=== PATIENT | male | born 1990 | race African-American/Black ===

== ENCOUNTER 2017-01-27 21:04 | Emergency (ER) | payer OTHER ==
--- NOTE | ~2017-01-27 | ER ---
PATIENT'S NAME: ARTUR ARMANDO [facility] AGE: 26 Y [address] ROOM: [place] [address] LOCATION: [facility] ADMIT DATE: 01/27/2017 ER/Outpatient Report DISCHARGE DATE: 01/27/2017 FAMILY PHYSICIAN: PHYSICIAN, NO ATTENDING PHYSICIAN: Bradford Blanchard Time of Arrival: 2107 hours. Time of Evaluation: 2110 hours. CHIEF COMPLAINT: Left shoulder, neck pain. HISTORY OF PRESENT ILLNESS: The patient states was working out yesterday, doing a rowing type motion, was little sore last night, but today about 1 o'clock, he began having quite a bit of cramping in the left anterior shoulder, into the left neck area. Denies having any chest pain or shortness of breath. Denies having any fever or chills. Denies having a headache. He states he has had problems with the right shoulder before but never on the left. Denies any vision changes. ALLERGIES: NO KNOWN ALLERGIES. MEDICATIONS: No regular medications. PAST MEDICAL HISTORY: Benign. PAST SURGICAL HISTORY: Surgery to the right shoulder. REVIEW OF SYSTEMS: All negative other than those mentioned in the HPI. PHYSICAL EXAMINATION: VITAL SIGNS: He weighs 105.1 kg, blood pressure is 162/75, pulse of 90, respirations 16, temperature of 98.4, O2 saturation is 98% on room air. GENERAL: He is awake, alert, and oriented x4. SKIN: [place], warm, and dry. RESPIRATIONS: Even and nonlabored. Lung sounds are clear throughout. HEART: Regular rate and rhythm. MUSCULOSKELETAL: Left shoulder range of motion is not decreased, not able to pinpoint where the pain is. With neck range of motion, he did have increased discomfort along the paraspinal area associated with flexion and extension. PATIENT'S NAME: ARTUR ARMANDO [facility] AGE: 26 Y [address] ROOM: [place] [address] LOCATION: [facility] ADMIT DATE: 01/27/2017 ER/Outpatient Report DISCHARGE DATE: 01/27/2017 FAMILY PHYSICIAN: PHYSICIAN, NO ATTENDING PHYSICIAN: Bradford Blanchard He has strong radial and ulnar pulses. IMPRESSION: Left shoulder pain, left neck pain due to overuse. PLAN: Home, rest. Heat or ice to the area. Prescription was written for Flexeril for spasms and naproxen for discomfort. He is to follow up with an orthopedic doctor in 2 to 3 days if symptoms persist or worsen. He verbalized understanding. CHRISTINE MONZON APRN FOR MD OBED ORTEZ/tejinder /[id number] d: 01/28/17 0038 t: 01/30/17 1811, OUTPATIENT REPORT
== END 2017-01-27 21:32 | disposition disaster alternative care site (69) ==
LOC: GMED 21:04
DX: M25.512 Pain in left shoulder (principal); M54.2 Cervicalgia

== ENCOUNTER 2017-05-26 16:48 | Emergency (ER) | payer OTHER ==
--- NOTE | ~2017-05-26 | ER ---
PATIENT'S NAME: ARTUR ARMANDO [facility] AGE: 27 Y [address] ROOM: [place] [address] LOCATION: ED ADMIT DATE: 05/26/2017 ER/Outpatient Report DISCHARGE DATE: 05/26/2017 FAMILY PHYSICIAN: Flex Dunn MD ATTENDING PHYSICIAN: Honey Puri Time of Arrival: 1648 hours. Time of Evaluation: 1706 hours. IDENTIFICATION: A 27-year-old male. CHIEF COMPLAINT: High blood pressure. HISTORY OF PRESENT ILLNESS: The patient states yesterday his blood pressure was 170s systolic, today was running high again, was seen at [facility] and his left hand had kind of been purple around 1 o'clock today. His blood pressure was high, so he went to the clinic. Blood pressure at the clinic was 177/80, so he was sent to the ER for CAT scan. When I talked with Dr. Rubio, he actually said that the patient had concerns where he did want a head CT. The patient denies any headache. He really denies any other symptoms and the discoloration of his arm has completely resolved. He just feels a weird sensation on the left side of his chest. ALLERGIES: NO KNOWN DRUG ALLERGIES. CURRENT MEDICATIONS: No current medications. PAST MEDICAL HISTORY: The patient denies any medical problems. Dr. Rubio states he has a history of alpha-thalassemia. FAMILY HISTORY: Positive for hypertension. SOCIAL HISTORY: The patient lives here in [place]. Works at [employer]. Tobacco use, denies. Alcohol use, occasional. Drug use, denies. REVIEW OF SYSTEMS: All systems reviewed and negative other than what is noted in the HPI. PATIENT'S NAME: ARTUR ARMANDO [facility] AGE: 27 Y [address] ROOM: [place] [address] LOCATION: [facility] ADMIT DATE: 05/26/2017 ER/Outpatient Report DISCHARGE DATE: 05/26/2017 FAMILY PHYSICIAN: Flex Dunn MD ATTENDING PHYSICIAN: Honey Puri PHYSICAL EXAMINATION: VITAL SIGNS: Height 6 feet 0 inches, weight 107 kg, blood pressure 158/106, pulse 80, respirations 17, temperature 98.4, sats 99% on room air. GENERAL: Pleasant male in no acute distress. HEENT: Head: Normocephalic, atraumatic. Ears: TMs translucent, both ears. Eyes: Pupils equal and reactive to light and accommodation. Extraocular movements intact. Nose: Mucosa pink. No lesions. Mouth: No lesions. Pharynx benign. NECK: Supple. No lymphadenopathy. LUNGS: Clear to auscultation. HEART: Regular rate and rhythm. ABDOMEN: Soft, nondistended, nontender. SKIN: [place], warm, and dry. No lesions or rashes noted. NEURO: The patient is alert and oriented x4. Cranial nerves 2 through 12 grossly intact. Motor strength 5/5 throughout. Sensation is intact to light touch. Blood pressure rechecked in the right arm 164/86, left arm 170/92. EMERGENCY DEPARTMENT COURSE: Labs were ordered. Urine, TSH, ACS with one-view, chest x-ray, and a head CT. It is shift change and Dr. Villalobos will assume care. HONEY PURI MD CAR/modl /[id number] d: 05/29/172139 t: 05/30/17 0610, OUTPATIENT REPORT
--- NOTE | ~2017-05-26 | ER ---
PATIENT'S NAME: ARTUR ARMANDO [facility] AGE: 27 Y [address] ROOM: [place] [address] LOCATION: [facility] ADMIT DATE: 05/26/2017 ER/Outpatient Report DISCHARGE DATE: 05/26/2017 FAMILY PHYSICIAN: Flex Dunn MD ATTENDING PHYSICIAN: Honey Kearney HISTORY OF PRESENT ILLNESS: This patient is a 27-year-old male who comes in with hypertension. He was initially seen by Dr. Rubio at [facility] and asked to come over here for further evaluation, cardiac workup, and brain scan. The patient initially saw Dr. Kearney. See Dr. Kearney's dictation in regard to the chief complaint, history of present illness, past medical history, and physical exam. Dr. Kearney transferred the patient's care over to me at shift change. She asked me to follow up with the patient's laboratory study results, EKG and chest x-ray results, and CT scan of the brain results. CT scan of the head showed no intracranial bleed, midline shift, mass effect, or skull fracture. CT scan was read by Radiology, see dictated transcribed report. Chest x-ray showed no acute infiltrate or changes. We will review x-ray with the radiologist. EKG showed early repolarization, sinus rhythm. No acute ST elevation, ischemic change, or arrhythmia. LABORATORY STUDIES: CMS was normal. Magnesium was normal at 2.0. CPK was normal at 213. Point of care cardiac enzymes were normal. TSH was normal at 1.58. White count 6300, 72 segs, 19 lymphs, 8 monos, 1 eo, and 1 baso. Hemoglobin is 12.3, hematocrit 38.9, and platelet count is [id number]. PTT was 26, pro-time was 10 with an INR 0.95. Urinalysis was clear. IMPRESSION: Hypertension. PLAN: I did discuss this patient with Dr. Rubio on the phone. Dr. Rubio wanted the patient to be started on Norvasc. He called in a script to [facility]. Norvasc 5 mg one a day. He is to start that tonight. To see Dr. Sanz tomorrow in the clinic at 1030 hours in the morning. The patient is to continue balanced diet, good fluid intake, good rest, and good exercise program. He was instructed to talk to Dr. Sanz about dietary management and whether he should see a dietitian in regard to his diet. Discussion ensued with the patient concerning my findings and recommendations, he understands. WILLIAN HAMMONDS MD PATIENT'S NAME: ARTUR ARMANDO+ [facility] AGE: 27 Y [address] ROOM: [place] [address] LOCATION: [facility] ADMIT DATE: 05/26/2017 ER/Outpatient Report DISCHARGE DATE: 05/26/2017 FAMILY PHYSICIAN: Flex Dunn MD ATTENDING PHYSICIAN: Honey Kearney/tejinder /[id number] d: 05/26/17 2358 t: 05/27/17 1809, OUTPATIENT REPORT
[2017-05-26 17:45] LABS: BASOPHIL # 0.1 K/uL (0.0-0.2); BASOPHIL % 0.8 %; EOSINOPHIL % 0.6 %; HEMATOCRIT 38.9 % (37.0-53.0); HEMOGLOBIN 12.3 g/dL (12.0-17.0); IMMATURE GRANULOCYTE % 0.2 %; LYMPHOCYTE # 1.2 K/uL (0.8-4.0); LYMPHOCYTE % 18.5 %; MCH 24.7 pg (27.0-34.0); MCHC 31.6 gm/dL (32.0-36.5); MCV 78.1 fl (83.0-98.0); MONOCYTE # 0.5 K/uL (0.0-1.0); MONOCYTE % 8.1 %; NEUTROPHIL # (ANC) 4.5 K/uL (1.4-9.0); NEUTROPHIL % 71.8 %; NRBC % 0 /100WBC (0-0.00); PLATELET COUNT 293 K/uL (150-450); RBC 4.98 M/uL (4.00-6.00); RDW-CV 13.5 % (11.9-14.6); WBC 6.3 K/uL (4.0-11.0)
[2017-05-26 17:53] LABS: BILIRUBIN URINE NEGATIVE (NEGATIVE); BLOOD URINE NEGATIVE /UL (NEGATIVE); COLOR URINE COLORLESS (YELLOW); GLUCOSE URINE NEGATIVE (NEGATIVE); KETONE URINE NEGATIVE (NEGATIVE); LEUKOCYTES URINE NEGATIVE /UL (NEGATIVE); NITRITE URINE NEGATIVE (NEGATIVE); PROTEIN URINE NEGATIVE (NEGATIVE); TURBIDITY URINE CLEAR (CLEAR); UROBILINOGEN URINE NORMAL (NORMAL)
[2017-05-26 17:54] LABS: INR - (THERAPEUTIC) 0.95 (0.92-1.07); PTT 26 SECONDS (25-32)
[2017-05-26 18:05] LABS: ALBUMIN 3.8 gm/dL (3.5-5.0); ALK PHOS 94 IU/L (33-138); ALT 22 IU/L (12-78); ANION GAP 10.7 (10.0-19.0); AST 17 IU/L (10-40); BLOOD UREA NITROGEN 14 mg/dL (6-24); CALCIUM 8.5 mg/dL (8.5-10.5); CHLORIDE 105 mMol/L (96-110); CO2 27 mMol/L (22-32); CPK 213 IU/L (35-332); CREATININE 1.2 mg/dL (0.6-1.3); ESTIMATED GFR (MDRD EQUATION) > 60; POTASSIUM 3.7 mMol/L (3.7-5.1); SODIUM 139 mMol/L (135-145); TOTAL BILIRUBIN 0.6 mg/dL (0.0-1.5); TOTAL PROTEIN 7.9 g/dL (6.0-8.4)
== END 2017-05-26 18:52 | disposition disaster alternative care site (69) ==
LOC: GMED 16:48
PROVIDERS: Family Medicine
DX: I10 Essential (primary) hypertension (principal)